=== PATIENT | male | born 1950 | race Caucasian/White ===

== ENCOUNTER 2018-08-07 15:04 | Outpatient (CLI) | payer MEDICARE ==
--- NOTE | 2018-08-07 16:27 | Diagnostic Imaging Report ---
NANCIE MCKEON [facility] [id number] [facility] [address] [address] Report Submission Date: Aug 07, 2018 3:45:40 PM [employer] Patient Study Name: NAGI GOYAL Date: Aug 07, 2018 3:11:23 PM [employer]EP[employer] Modality Type: DX Gender: M Description: SHOULDER : 46 Institution: [facility] Physician: NANCIE MCKEON Examination: Plain film right shoulder History: NECK AND RIGHT SHOULDER PAIN POST FALL ON ICE YESTERDAY. PREVIOUS JAW SURGERY. (Hx) Comparison exams: None provided Findings: 4 views of the right shoulder demonstrate normal cortical margins. No evidence for fracture or dislocation. Mild acromioclavicular joint degenerative changes. No soft tissue abnormality. Impression: Mild degenerative changes. No acute cortical abnormality. Electronically signed on Aug 07, 2018 3:45:40 PM FOREPART ROUNDER by: Kem MAIN
--- NOTE | 2018-08-07 16:28 | Diagnostic Imaging Report ---
NANCIE MCKEON [facility] [id number] [facility] [address] [address] Report Submission Date: Aug 07, 2018 3:44:29 PM [employer] Patient Study Name: NAGI GOYAL Date: Aug 07, 2018 3:03:25 PM [employer] Modality Type: DX Gender: M Description: SPINE : 46 Institution: [facility] Physician: NANCIE MCKEON Examination: Cervical spine History: NECK AND RIGHT SHOULDER PAIN POST FALL ON ICE YESTERDAY. PREVIOUS JAW SURGERY. (Hx) Comparison exams: None available Findings: 4 views of the cervical spine demonstrates degenerative spurring. Congenital fusion C5/C6. No anterior compression. No abnormal listhesis. Disc space narrowing. No odontoid abnormality. No prevertebral abnormality Impression: Degenerative changes and congenital fusion. No compression deformity. Electronically signed on Aug 07, 2018 3:44:29 PM [employer] by: Kem MAIN
== END 2018-08-07 15:05 ==
LOC: RAD 15:04
PROVIDERS: ATTEND Family Medicine
DX: M25.511 Pain in right shoulder (principal); M19.011 Primary osteoarthritis, right shoulder; M43.22 Fusion of spine, cervical region; M47.812 Spondylosis without myelopathy or radiculopathy, cervical region; W19.XXXA Unspecified fall, initial encounter
CPT/HCPCS: 72040; 73030

== ENCOUNTER 2019-08-07 12:46 | Outpatient (CLI) | payer MEDICARE ==
--- NOTE | 2019-08-08 01:59 | Diagnostic Imaging Report ---
PATIENT MR#: [id number] PATIENT PATIENT NAME: NAGI GOYAL DATE OF : 1950 REFERRING PHYSICIAN: Primo Ruiz EXAM DATE: 08/07/2019 ACCESSION NUMBER: [id number] EXAM DESCRIPTION: US ABDOMEN COMPLETE CLINICAL HISTORY: RUQ PAIN, RT FLANK PAIN TECHNIQUE: Ultrasound of the abdomen was performed. ULTRASOUND ABDOMEN: Liver: No intrahepatic ductal dilation. Gallbladder: Normally distended and without wall thickening. Mild biliary sludge. Common bile duct: Nondistended at 2.6 mm. Pancreas: Poorly visualized due to overlying bowel gas. No pancreatic duct dilation. Spleen: 10.9 cm length. Right kidney: 10.3 x 4.6 x 5.9 cm. No stones or hydronephrosis. 1.9 cm right lower pole cyst. Left kidney: 10.3 x 5.4 x 5.4 cm. No stones or hydronephrosis. Aorta: Normal caliber, 1.7 cm. IVC: Patent. Peritoneum: No free fluid. IMPRESSION: 1. Small right renal cyst. No nephrolithiasis or hydronephrosis. 2. Mild gallbladder debris without formed cholelithiasis or evidence of cholecystitis. Read by: Dr. Cali Magaña Transcribed by: Cali Magaña Transcribed Date: 08/08/2019 1:37:49 AM Electronically signed by: Dr. Cali Magaña Date signed: 08/08/2019 1:58:33 AM
== END 2019-08-07 12:56 ==
LOC: RAD 12:46
PROVIDERS: ATTEND Family Medicine
DX: R10.11 Right upper quadrant pain (principal)
CPT/HCPCS: 76700